=== PATIENT | female | born 1955 | race Caucasian/White ===

== ENCOUNTER 2019-04-28 16:35 | Outpatient (CLI) | payer OTHER, SELFPAY ==
--- NOTE | ~2019-04-28 | US_ITS ---
EXAMINATION: US thyroid EXAM DATE: 04/28/2019 17:44 INDICATION: Thyroid mass. TECHNIQUE: Multiple grayscale and Doppler images of the thyroid were obtained (by a technologist who performed the scan) and subsequently reviewed. Individual nodules may be reported using TI-RADS syst em as designated by the 2017 ACR White Paper TI-RADS committee. There is no prior study for comparis on. FINDINGS: The right thyroid lobe measures 5.3 x 2.2 x 2.7 cm, the left thyroid lobe measures 4.4 x 1.5 x 1.1 cm . There is a right thyroid lobe anechoic cystic nodule measuring 3.3 x 1.7 x 2.1 centimeters, cystic, anechoic, wider than tall, smooth margin, without echogenic foci, category TR1 for this nodule. No other nodules identified. IMPRESSION: 1. Right thyroid lobe cystic lesion, benign finding. Reviewed, dictated and finalized at location A. [employer]
== END 2019-04-28 16:36 | disposition home or self-care (01) ==
PROVIDERS: PCP Internal Medicine; Visit Provider Internal Medicine
DX: E04.9 Nontoxic goiter, unspecified (principal)
CPT/HCPCS: 76536